=== PATIENT | female | born 1950 | race Caucasian/White ===

== ENCOUNTER 2016-12-08 10:04 | Emergency (ER) | payer OTHER ==
[~2016-12-08] VITALS: Ht 154.9 cm; Wt 72.6 kg
[2016-12-08] MEDS ORDERED: CLEOCIN HCL300 MG PO (10:23)
[2016-12-08] MEDS ORDERED: PAROXETINE40 MG PO (10:24)
[2016-12-08] MEDS ORDERED: SIMVASTATIN10 MG PO (10:24)
[2016-12-08] MEDS ORDERED: IRON325 M2 PO (10:24)
[2016-12-08] MEDS ORDERED: COZAAR50 M1 PO (10:25)
[2016-12-08] MEDS ORDERED: COL-RITE100 M1 PO (10:25)
[2016-12-08] MEDS ORDERED: TRAZODONE100 MG PO (10:26)
[2016-12-08 11:02] LABS: BASO # 0.1 10*3/uL (0.0-0.1); EOS # 0.1 10*3/uL (0.0-0.4); HEMATOCRIT 41.1 % (37.0-47.0); HEMOGLOBIN 13.4 g/dl (12.0-16.0); LYMPH # 2.3 10*3/uL (1.3-4.4); MEAN CORPUSCULAR HGB 28.7 pg (27.0-31.0); MEAN CORPUSCULAR HGB CONC 32.6 g/dl (33.0-37.0); MEAN PLATELET VOLUME 10.3 fl (9.6-12.3); MONO # 0.5 10*3/uL (0.1-1.0); MONO % 7.4 % (3.0-9.0); NEUT # 4.2 10*3/uL (2.3-7.9); NEUT % 58.3 % (47.0-73.0); PLATELET COUNT AUTOMATED 264 10*3/uL (130-400); RED BLOOD COUNT 4.67 10*6/uL (4.10-5.10); RED CELL DISTRI WIDTH 14.8 % (0-14.5); WHITE BLOOD COUNT 7.2 10*3/uL (4.8-10.8)
[2016-12-08 11:11] LABS: INTERNATIONAL NORM RATIO 0.9 (2.0-3.5); PROTHROMBIN TIME 9.9 SECONDS (9.0-12.4)
[2016-12-08 11:18] LABS: ALBUMIN 3.2 gm/dl (3.1-4.5); ALKALINE PHOSPHATASE 70 U/L (45-117); BILIRUBIN, TOTAL 0.2 mg/dl (0.2-1.0); BUN 11 mg/dl (7-24); CARBON DIOXIDE 28 mmol/L (21-32); CHLORIDE 106 mmol/L (98-107); EST GLOM FILT AFRICAN AMERICAN > 60 ml/min; GLUCOSE 98 mg/dL (65-99); MAGNESIUM 2.1 mg/dL (1.5-2.1); POTASSIUM 3.8 mmol/L (3.5-5.1); SGOT/AST 17 IU/L (3-35); SGPT/ALT 31 U/L (12-78); SODIUM 141 mmol/L (136-145); TOTAL PROTEIN 6.3 gm/dL (6.4-8.2)
[2016-12-08 11:19] LABS: TROPONIN I < 0.015 ng/ml (<0.045)
[2016-12-08] MEDS ORDERED: ESOMEPRAZOLE MA40 M1 PO (11:33)
== END 2016-12-08 12:13 | disposition home or self-care (01) ==
LOC: ED 10:04
PROVIDERS: Student in an Organized Health Care Education/Training Program
DX: K21.9 Gastro-esophageal reflux disease without esophagitis (principal); F17.200 Nicotine dependence, unspecified, uncomplicated; Z79.899 Other long term (current) drug therapy; Z88.0 Allergy status to penicillin; Z88.5 Allergy status to narcotic agent

== ENCOUNTER 2016-12-23 09:18 | Inpatient (IN) | payer OTHER ==
[~2016-12-23] VITALS: Ht 157.4 cm; Wt 67.7 kg
--- NOTE | ~2016-12-23 | WRIGHTHP ---
[place], [place] PATIENT HISTORY AND PHYSICAL EXAM NAME: RITA RO [facility] #: [id number] UNIT #: [id number] ROOM: [facility] DOCTOR: EVELIN BELL MD BIRTHDATE: [birth year] DOS: 12/23/2016 HISTORY OF PRESENT ILLNESS: The patient is a 66-year-old female with past medical history of: 1. GERD. 2. Benign essential hypertension. 3. The patient has history of mixed hyperlipidemia. 4. Major depression, recurrent. The patient presented to the Emergency Department with 2-3 weeks complaints of increasing sensation of heartburn and right upper quadrant pains and pain going across her upper abdomen with some nausea and vomiting. The patient was diagnosed in the Emergency Department as having acute cholecystitis and was recommended for admission. The patient was treated with metronidazole and clindamycin and her abdominal pain, nausea and vomiting have improved. The patient was seen by surgeon, Dr. Helm, who has cleared her for discharge to home to follow up on Monday for elective cholecystectomy. No chest pain, no shortness of breath. No GI or urinary symptoms. The patient is not giving any previous history of coronary artery disease, any adverse reaction to anesthesia in the past and she does not take any blood thinners. REVIEW OF SYSTEMS: GASTROINTESTINAL: ____ nausea, vomiting. No diarrhea or constipation. LUNGS: No shortness of breath or wheezing. HOME MEDICATIONS: The patient takes famotidine, paroxetine, losartan, omeprazole, trazodone, simvastatin. SOCIAL HISTORY: Smokes 1 pack of cigarettes a day, now is cutting back. Denies any alcohol or drug abuse. FAMILY HISTORY: Noncontributory. ALLERGIES: KNOWN ALLERGIES TO PENICILLIN AND CODEINE. PHYSICAL EXAMINATION: GENERAL: Alert and oriented x3, in no visible distress. VITAL SIGNS: Blood pressure 120/60, heart rate 75 beats per minute, breathing 20 times per minute, temperature 98.2 degrees Fahrenheit. HEENT AND NECK: Extraocular movements are intact. Sclerae are anicteric. Oral mucosa is moist and clean. No obvious facial weakness. Neck is supple without any lymphadenopathy. No thyromegaly. No JVD. No carotid arterial bruits. LUNGS: Clear to auscultation. No wheezing. No rhonchi. CARDIOVASCULAR SYSTEM: Heart rate is regular in rate and rhythm. S1 and S2 normally audible. No significant murmur or any other abnormal cardiac sounds. ABDOMEN: Right upper quadrant and some epigastric tenderness on palpation. No rigidity. No rebound tenderness or guarding. No signs of peritonitis. EXTREMITIES: Without significant cyanosis or edema. Warm to touch. CENTRAL NERVOUS SYSTEM: Alert and oriented x3. Cranial nerves II-XII are [place], [place] PATIENT H[facility]YS[facility] [id number] UNIT #: [id number] ROOM: [facility] DOCTOR: EVELIN BELL MD BIRTHDATE: [birth year] intact. Speech is normal. The patient is able to move all extremities. Normal muscle strength. Deep tendon reflexes are equal on both sides. Plantars were downgoing. LABORATORY DATA: Normal serum electrolytes. Blood sugar 127. Normal cardiac enzymes. CT of the abdomen and pelvis showing mildly distended gallbladder. Chest x-ray was normal. Gallbladder ultrasound showed sludge and gallstones. IMPRESSION AND PLAN: The patient's acute cholecystitis is being treated with antibiotics and she is symptomatically much better and able to tolerate food. The patient has been cleared for discharge to home by Dr. Helm and he is scheduling her for laparoscopic cholecystectomy on Monday. The patient will be sent home on oral Flagyl and clindamycin, which have helped her significantly with her symptoms during her hospital stay. 1. ____ abuse. The patient is requesting nicotine patches, which have been ordered. The patient wants to stop smoking cigarettes. 2. Mixed hyperlipidemia treated with simvastatin, which has been continued. 3. Benign essential hypertension with controlled blood pressures with present treatment. 4. Major depression, recurrent, mild, is under control with Paxil. 5. No previous history of coronary artery disease or any major lung disease with normal chest x-ray. 6. EKG and blood work. The patient does not take any blood thinner, so she should be able to get her surgery on Monday. Her PT, PTT were baseline. EVELIN BELL MD CM:HISPHYS:PATIENT HISTORY AND PHYSICAL EXAMINATION [id number] EVELIN BELL MD 12/24/16 1434 interface
[~2016-12-23 09:18] MED LIST: CLEOCIN HCL300 MG PO; COL-RITE100 M1 PO; COZAAR50 M1 PO; ESOMEPRAZOLE MA40 M1 PO; IRON325 M2 PO; PAROXETINE40 MG PO; SIMVASTATIN10 MG PO; TRAZODONE100 MG PO
[2016-12-23 09:23] VITALS: BP 193/89
[2016-12-23 09:40] LABS: BASO # 0.1 10*3/uL (0.0-0.1); BASO % 0.7 % (0.0-1.0); EOS # 0.1 10*3/uL (0.0-0.4); EOS % 0.7 % (1.0-4.0); HEMATOCRIT 44.5 % (37.0-47.0); HEMOGLOBIN 14.9 g/dl (12.0-16.0); IG # 0.1 10*3/uL (0.0-0.1); LYMPH # 2.7 10*3/uL (1.3-4.4); LYMPH % 20.1 % (27.0-41.0); MEAN CELL VOLUME 88.1 fl (81.0-99.0); MEAN CORPUSCULAR HGB 29.5 pg (27.0-31.0); MEAN CORPUSCULAR HGB CONC 33.5 g/dl (33.0-37.0); MEAN PLATELET VOLUME 10.3 fl (9.6-12.3); MONO # 1.1 10*3/uL (0.1-1.0); MONO % 8.1 % (3.0-9.0); NEUT # 9.5 10*3/uL (2.3-7.9); PLATELET COUNT AUTOMATED 290 10*3/uL (130-400); RED BLOOD COUNT 5.05 10*6/uL (4.10-5.10); RED CELL DISTRI WIDTH 13.9 % (0-14.5); WHITE BLOOD COUNT 13.6 10*3/uL (4.8-10.8)
[2016-12-23 09:49] LABS: INTERNATIONAL NORM RATIO 0.9 (2.0-3.5); PROTHROMBIN TIME 9.7 SECONDS (9.0-12.4)
[2016-12-23 09:55] LABS: ALBUMIN 3.7 gm/dl (3.1-4.5); ALKALINE PHOSPHATASE 110 U/L (45-117); BILIRUBIN, TOTAL 0.3 mg/dl (0.2-1.0); BUN 13 mg/dl (7-24); C-REACTIVE PROTEIN 1.13 MG/DL (0-0.3); CARBON DIOXIDE 26 mmol/L (21-32); CHLORIDE 102 mmol/L (98-107); CKMB 3.9 ng/ml (0.5-3.6); CPK 176 U/L (26-192); EST GLOM FILT AFRICAN AMERICAN > 60 ml/min; GLUCOSE 122 mg/dL (65-99); MAGNESIUM 2.3 mg/dL (1.5-2.1); POTASSIUM 4.1 mmol/L (3.5-5.1); SGOT/AST 20 IU/L (3-35); SGPT/ALT 30 U/L (12-78); SODIUM 140 mmol/L (136-145); TOTAL PROTEIN 7.7 gm/dL (6.4-8.2)
[2016-12-23 09:59] LABS: TROPONIN I < 0.015 ng/ml (<0.045)
[2016-12-23 11:55] VITALS: BP 164/90
[2016-12-23 12:56] VITALS: BP 102/68
[2016-12-23 14:04] VITALS: BP 210/110
[2016-12-23] MEDS ORDERED: PRILOSEC20 M1 PO (14:21)
[2016-12-23] MEDS ORDERED: VITAMIN D1000 IU PO (14:25)
[2016-12-23] MEDS ORDERED: ZANTAC 150150 MG PO (14:25)
[2016-12-23 16:02] VITALS: BP 160/88
[2016-12-24] VITALS: BP 112/59
[2016-12-24 06:14] LABS: BASO # 0.1 10*3/uL (0.0-0.1); BASO % 0.8 % (0.0-1.0); EOS # 0.2 10*3/uL (0.0-0.4); EOS % 2.6 % (1.0-4.0); LYMPH % 25.4 % (27.0-41.0); MEAN CELL VOLUME 90.2 fl (81.0-99.0); MEAN CORPUSCULAR HGB 29.3 pg (27.0-31.0); MEAN CORPUSCULAR HGB CONC 32.5 g/dl (33.0-37.0); MEAN PLATELET VOLUME 10.9 fl (9.6-12.3); MONO # 0.8 10*3/uL (0.1-1.0); NEUT # 4.8 10*3/uL (2.3-7.9); NEUT % 60.9 % (47.0-73.0); PLATELET COUNT AUTOMATED 241 10*3/uL (130-400); RED CELL DISTRI WIDTH 13.9 % (0-14.5); WHITE BLOOD COUNT 7.8 10*3/uL (4.8-10.8)
[2016-12-24 06:15] LABS: HEMATOCRIT 37.9 % (37.0-47.0); HEMOGLOBIN 12.3 g/dl (12.0-16.0)
[2016-12-24 06:31] LABS: BUN 12 mg/dl (7-24); CARBON DIOXIDE 28 mmol/L (21-32); CHLORIDE 106 mmol/L (98-107); GLUCOSE 127 mg/dL (65-99); SODIUM 143 mmol/L (136-145)
[2016-12-24 06:33] LABS: EST GLOM FILT AFRICAN AMERICAN > 60 ml/min
[2016-12-24 08:00] VITALS: BP 116/50
[2016-12-24 11:37] VITALS: BP 120/60
[2016-12-24] MEDS ORDERED: CLEOCIN HCL300 MG PO (13:14)
[2016-12-24] MEDS ORDERED: FLAGYL500 MG PO (13:14)
[2016-12-24] MEDS ORDERED: NICOTINE PATCH1 EAC1 TD (13:16)
[2016-12-24] MEDS ORDERED: NYSTATIN 1 ML1 ML T (15:05)
== END 2016-12-24 14:29 | disposition home or self-care (01) | DRG 445 ==
LOC: ED 09:18 → EDHOLD 12:49 → 5E 13:11
PROVIDERS: Emergency Medicine; Internal Medicine
DX: K81.0 Acute cholecystitis (principal); F33.9 Major depressive disorder, recurrent, unspecified; I10 Essential (primary) hypertension; F17.210 Nicotine dependence, cigarettes, uncomplicated; K21.9 Gastro-esophageal reflux disease without esophagitis; E78.2 Mixed hyperlipidemia; Z88.0 Allergy status to penicillin; Z88.6 Allergy status to analgesic agent; Z79.899 Other long term (current) drug therapy

== ENCOUNTER → 2016-12-28 | Outpatient (CLI) | payer OTHER ==
[~2016-12-28] VITALS: Ht 157.4 cm; Wt 67.6 kg
[~2016-12-28] MED LIST changes: +FLAGYL500 MG PO; +NICOTINE PATCH1 EAC1 TD; +NYSTATIN 1 ML1 ML T; +PRILOSEC20 M1 PO; +VITAMIN C100 M3 PO; +VITAMIN D1000 IU PO; +ZANTAC 150150 MG PO
[2016-12-28 09:49] VITALS: BP 149/69
[2016-12-28 11:01] LABS: BASO # 0.1 10*3/uL (0.0-0.1); BASO % 0.8 % (0.0-1.0); EOS # 0.2 10*3/uL (0.0-0.4); EOS % 1.7 % (1.0-4.0); HEMATOCRIT 43.1 % (37.0-47.0); IG # 0.1 10*3/uL (0.0-0.1); LYMPH # 2.1 10*3/uL (1.3-4.4); LYMPH % 21.4 % (27.0-41.0); MEAN CELL VOLUME 89.4 fl (81.0-99.0); MEAN CORPUSCULAR HGB CONC 32.5 g/dl (33.0-37.0); MEAN PLATELET VOLUME 10.5 fl (9.6-12.3); MONO # 0.6 10*3/uL (0.1-1.0); MONO % 6.4 % (3.0-9.0); NEUT # 6.9 10*3/uL (2.3-7.9); NEUT % 69.2 % (47.0-73.0); PLATELET COUNT AUTOMATED 313 10*3/uL (130-400); RED BLOOD COUNT 4.82 10*6/uL (4.10-5.10); RED CELL DISTRI WIDTH 13.7 % (0-14.5); WHITE BLOOD COUNT 9.9 10*3/uL (4.8-10.8)
[2016-12-28 11:34] LABS: ALBUMIN 3.3 gm/dl (3.1-4.5); BILIRUBIN, DIRECT < 0.1 mg/dL (0.0-0.2); BILIRUBIN, TOTAL 0.2 mg/dl (0.2-1.0); SGOT/AST 19 IU/L (3-35); SGPT/ALT 27 U/L (12-78); TOTAL PROTEIN 7.3 gm/dL (6.4-8.2)
[2016-12-28 11:35] LABS: ALKALINE PHOSPHATASE 100 U/L (45-117)
[2016-12-28 11:36] LABS: INTERNATIONAL NORM RATIO 0.9 (2.0-3.5)
[2016-12-29 09:42] VITALS: BP 137/64
== END ==
LOC: SDC 09:30 → LAB 15:00 → SDC 12-29 01:56 → EDSTATUS 12-29 09:30 → SDC 12-29 10:30
PROVIDERS: Surgery
DX: K80.20 Calculus of gallbladder without cholecystitis without obstruction (principal); R79.1 Abnormal coagulation profile

== ENCOUNTER → 2017-01-03 | Outpatient (CLI) | payer OTHER ==
[~2017-01-03] MED LIST changes: +HYDROCODONE BIT1 T11 PO
== END | disposition home or self-care (01) ==
LOC: ORTHO 09:44
DX: M79.641 Pain in right hand (principal)

== ENCOUNTER → 2017-01-05 | Day surgery (SDC) | payer OTHER ==
[2017-01-05] VITALS (8 sets, daily range): BP systolic 136–164; BP diastolic 71–104
== END | disposition home or self-care (01) ==
LOC: SDC 01-04 04:01
DX: K80.12 Calculus of gallbladder with acute and chronic cholecystitis without obstruction (principal); F32.9 Major depressive disorder, single episode, unspecified; I10 Essential (primary) hypertension; J44.9 Chronic obstructive pulmonary disease, unspecified; K21.9 Gastro-esophageal reflux disease without esophagitis; F41.9 Anxiety disorder, unspecified; F17.210 Nicotine dependence, cigarettes, uncomplicated; Z98.890 Other specified postprocedural states; Z88.8 Allergy status to other drugs, medicaments and biological substances; Z88.0 Allergy status to penicillin; Z98.51 Tubal ligation status

== ENCOUNTER → 2017-01-13 | Outpatient (CLI) | payer OTHER | END | disposition home or self-care (01) | LOC: RAD 13:02 | DX: M54.2 Cervicalgia (principal) ==

== ENCOUNTER → 2017-02-10 | Day surgery (SDC) | payer OTHER ==
[~2017-02-10] VITALS: Ht 154.9 cm; Wt 72.6 kg
--- NOTE | ~2017-02-10 | PROC NOTE ---
[place], [place] PROCEDURE NOTE NAME: RITA RO [facility] #: [id number] UNIT #: [id number] ROOM: DOCTOR: EDWIN EDMONDS MD BIRTHDATE: [birth year] DOS: 02/10/2017 PREOPERATIVE DIAGNOSES: History of colonic polyps. POSTOPERATIVE DIAGNOSIS: Colon polyp at 35 cm. PROCEDURE: Colonoscopy with polypectomy x 1. ENDOSCOPIST: Edwin Edmonds MD MODEL ENGINE MECHANIC: MS3. ANESTHESIA: MAC. INDICATIONS: This is a 66-year-old lady who has had a history of colonic polyps, who is here for the above-mentioned procedure. The procedure and its complications were explained to the patient in detail. Complications that were discussed included but were not limited to bleeding, missed lesions, colon perforation, and she agreed to proceed. DESCRIPTION OF PROCEDURE: After identifying the patient, the patient was brought to the endoscopy suite and laid in the left lateral position. After IV sedation was administered, a timeout procedure was called and a digital rectal exam was performed. This was within normal limits. An adult colonoscope was now introduced into the anal canal and advanced sequentially into the rectum, sigmoid colon, descending colon, transverse colon and ascending colon up to the cecum. There was found to be 1 single polyp at 35 cm, which was removed with the help of a snare and sent for histopathological diagnosis. The rest of the colon mucosa looked normal. There were some internal hemorrhoids that were seen on the way out. After the scope was removed, the patient was taken to the recovery room in stable fashion. There were no complications. Based on these findings, the patient is recommended to have another colonoscopy in 3 years. I will talk about this to her when she comes and sees me in the postoperative recovery time. I have talked about this to the patient's relative in the postoperative area. Edwin Edmonds MD CM:PROCNOTE:PROCEDURE NOTE [id number] EDWIN EDMONDS MD
[2017-02-10 07:50] VITALS: BP 150/64
[2017-02-10 09:08] VITALS: BP 117/51
[2017-02-10 09:23] VITALS: BP 107/51
[2017-02-10 09:38] VITALS: BP 110/44
[2017-02-10 09:53] VITALS: BP 118/54
== END | disposition home or self-care (01) ==
LOC: SDC 02-07 09:30
DX: Z09 Encounter for follow-up examination after completed treatment for conditions other than malignant neoplasm (principal); D12.5 Benign neoplasm of sigmoid colon; Z87.19 Personal history of other diseases of the digestive system; K21.9 Gastro-esophageal reflux disease without esophagitis; I10 Essential (primary) hypertension; J44.9 Chronic obstructive pulmonary disease, unspecified; K64.8 Other hemorrhoids; F41.9 Anxiety disorder, unspecified; F32.9 Major depressive disorder, single episode, unspecified; Z98.51 Tubal ligation status; Z90.49 Acquired absence of other specified parts of digestive tract; Z98.890 Other specified postprocedural states; F17.210 Nicotine dependence, cigarettes, uncomplicated

== ENCOUNTER → 2017-11-28 | Outpatient (CLI) | payer MEDICARE, MEDICAID | END | disposition home or self-care (01) | LOC: RAD 13:35 | DX: M99.01 Segmental and somatic dysfunction of cervical region (principal); M48.061 Spinal stenosis, lumbar region without neurogenic claudication ==

== ENCOUNTER → 2017-12-18 | Outpatient (CLI) | payer MEDICARE, OTHER | END | disposition home or self-care (01) | LOC: ORTHO 01:20 | DX: M79.645 Pain in left finger(s) (principal); M79.644 Pain in right finger(s); R20.0 Anesthesia of skin ==

== ENCOUNTER → 2018-04-19 | Outpatient (CLI) | payer MEDICARE, OTHER | END | disposition home or self-care (01) | LOC: RAD 13:16 → MAMMO 14:00 | DX: Z12.31 Encounter for screening mammogram for malignant neoplasm of breast (principal); Z78.0 Asymptomatic menopausal state; M85.88 Other specified disorders of bone density and structure, other site ==

== ENCOUNTER → 2019-02-26 | Outpatient (CLI) | payer MEDICARE, OTHER ==
--- NOTE | ~2019-02-26 | PF ---
[place], [place] PULMONARY FUNCTION TEST [id number] UNIT #: [id number] ROOM: DOCTOR: TRISTAN FUENTES MD,LEA BIRTHDATE: [birth year] DOS: 02/27/2019 ORDERED BY: Dr. Carlota Trujillo. HISTORY: The patient recorded as 68-year-old female, height of 62 inches, weight 268 pounds. Testing was done for assessment of symptoms of chronic cough. Tobacco use noted 1 pack of cigarettes per day for 40 years. SPIROMETRY: The FVC 2.37 liters, 85% predicted value, FEV1 of 1.71 liters as 79% predicted value, 17% improvement noted in FEV1 and 12% improvement postbronchodilator FEV1, which are noted significant partial improvement post-bronchodilators administration. Flow volume was noted finding consistent with reversible obstructive lung disease. The lung volumes, thoracic gas volume recorded 113%, residual volume 137%, total lung capacity of 109%. RV/TLC ratio 126%. The patient's lung diffusion recorded 98% normal. The patient's airway resistance, passive conductance noted with mild abnormality without any changes post-bronchodilator test. FINAL IMPRESSION: Current test was noted considered normal with a diagnosis of reversible bronchial asthma with mild severity at this time. Clinical correlation would be advised. LEA HUDSON MD CM:PFREPORT:PULMONARY FUNCTION TEST [id number] LEA FUENTES MD
== END | disposition home or self-care (01) ==
LOC: RAD 10:10
DX: J43.9 Emphysema, unspecified (principal)

== ENCOUNTER → 2019-03-08 | Outpatient (CLI) | payer MEDICARE, OTHER | END | disposition home or self-care (01) | LOC: US 12:57 | DX: I65.23 Occlusion and stenosis of bilateral carotid arteries (principal) ==

== ENCOUNTER → 2019-03-20 | Outpatient (CLI) | payer MEDICARE, OTHER | END | disposition home or self-care (01) | LOC: RAD 12:49 | DX: M54.6 Pain in thoracic spine (principal) ==

== ENCOUNTER → 2019-09-04 | Outpatient (CLI) | payer MEDICARE, OTHER | END | disposition home or self-care (01) | LOC: RAD 14:00 | DX: Z12.31 Encounter for screening mammogram for malignant neoplasm of breast (principal); Z78.0 Asymptomatic menopausal state; N64.89 Other specified disorders of breast ==

== ENCOUNTER 2019-12-27 16:23 | Emergency (ER) | payer MEDICARE, OTHER ==
[~2019-12-27] VITALS: Ht 157.4 cm; Wt 77.1 kg
[2019-12-27] MEDS ORDERED: DOXYCYCLINE100 M3 PO (19:30)
== END 2019-12-27 22:06 | disposition home or self-care (01) ==
LOC: ED 16:23
DX: L03.90 Cellulitis, unspecified (principal); R51 Headache; K21.9 Gastro-esophageal reflux disease without esophagitis; I10 Essential (primary) hypertension; J44.9 Chronic obstructive pulmonary disease, unspecified; F41.9 Anxiety disorder, unspecified; F32.9 Major depressive disorder, single episode, unspecified; F17.200 Nicotine dependence, unspecified, uncomplicated; Z88.0 Allergy status to penicillin; Z88.8 Allergy status to other drugs, medicaments and biological substances; Z79.899 Other long term (current) drug therapy

== ENCOUNTER → 2020-05-19 | Outpatient (CLI) | payer MEDICARE, OTHER ==
[~2020-05-19] MED LIST changes: +DOXYCYCLINE100 M3 PO
== END | disposition home or self-care (01) ==
LOC: CARD 09:55
PROVIDERS: ATTEND Internal Medicine
DX: R00.2 Palpitations (principal)